=== PATIENT | female | born 2005 | race African-American/Black ===

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

== ENCOUNTER 2024-10-16 09:13 | Emergency (ER) | payer OTHER, SELFPAY ==
[2024-10-16 09:28] VITALS: BP 122/55; PULSE 84; RESP 16; TEMP 38.9; O2SAT 99
--- NOTE | 2024-10-16 10:13 | ED.URI ---
HPI - URI/Sore Throat General Chief Complaint: Fever Stated Complaint: cough,cold sweats,JOSE,threw up Time Seen by Provider: 10/16/24 10:25 Source: patient, RN notes reviewed and old records reviewed Mode of arrival: ambulatory Limitations: no limitations History of Present Illness HPI Narrative: Patient presents with complaints of 3 days of flu-like symptoms. She has been taking [id number] medications intermittently. Has not had any today. States that she felt as though she is getting better tomorrow, but woke up feeling badly this morning. She is not in any obvious distress. She denies any injury or trauma. Voices no other concerns or complaints at this time. Related Data Home Medications ?Medication ?Instructions ?Recorded ?Confirmed ?Last Taken ?Type omeprazole 40 mg capsule,delayed 40 mg PO DAILY 06/22/23 11/23/23 Unknown History release albuterol sulfate 90 mcg/actuation 1 puff inhalation Q6-8H 11/23/23 11/23/23 Unknown History aerosol inhaler Allergies Allergy/AdvReac Type Severity Reaction Status Date / Time peanut Allergy Unknown EYE'S SWELL Verified 10/16/24 09:44 Review of Systems Review of Systems: All systems reviewed & are unremarkable except as noted in HPI and below Constitutional: Constitutional: Reports no additional constitutional complaints, Reports body ache(s), Reports fever(s), Reports headache(s) and Reports lethargy ENT: Reports system reviewed and no additional complaints, except as documented, Reports nasal congestion and Reports nasal discharge Cardiovascular: Cardiovascular: Reports no additional cardiovascular complaints Respiratory: Respiratory: Reports no additional respiratory complaints and Reports cough Gastrointestinal: Gastrointestinal: Reports no additional gastrointestinal complaints, Reports nausea and Reports vomiting (One episode) [facility] Past Medical History Medical History Acne COVID-09 September 2021 Sinus problem Surgical History Surgical History S/P tonsillectomy and adenoidectomy Social History Social History Smoking status: Never smoker Alcohol intake: unknown Substance use type: does not use Living arrangements: with family Gender identity (if verbalized by the patient): Female Comments At the time of my signature, I reviewed and agree with the nursing past medical, surgical, social, and family history. There is no relevant family history pertinent to the patient complaint. Exam Const: General: cooperative, no acute distress, alert and awake Orientation/consciousness: oriented to person, oriented to place and oriented to time HENMT: Head: normal to inspection Ears: TM's normal bilaterally Mouth: Yes moist mucous membranes Throat: postnasal drainage Resp: Effort & Inspection: normal respiratory effort and able to speak in complete sentences Auscultation: clear to auscultation bilaterally, no crackles, no rales, no rhonchi and no wheezes Cardio: Palpation: normal PMI Rate: regular rate Rhythm: regular rhythm Heart sounds: S1 normal heart sound present and S2 normal heart sound present Neuro: General: oriented to person, oriented to place and oriented to time Cranial nerves: Yes CN's II-XII intact bilaterally Psych: Appearance: grossly normal Thought process: Normal thought process present Insight: Good insight present (Psych) Judgement: Good judgement present (Psych) Course Course Level of Care: Express Care Visit Vital Signs Vital signs: Vital Signs Temperature 102.0 F H 10/16/24 09:28 Pulse Rate 84 10/16/24 09:28 Respiratory Rate 16 10/16/24 09:28 Blood Pressure 122/55 L 10/16/24 09:28 Pulse Oximetry 99 10/16/24 09:28 Oxygen Delivery Room Air 10/16/24 09:28 Temperature 102.0 F H 10/16/24 09:28 Pulse Rate 84 10/16/24 09:28 Respiratory Rate 16 10/16/24 09:28 Blood Pressure 122/55 L 10/16/24 09:28 Pulse Oximetry 99 10/16/24 09:28 Oxygen Delivery Room Air 10/16/24 09:28 Reviewed MDM - URI/Sore Throat MDM Narrative Medical decision making narrative: Patient appears uncomfortable, but nontoxic. She was febrile on arrival. Tylenol and ibuprofen given. Negative COVID, positive influenza. Supportive care measures discussed, work note provided. Discharge instructions reviewed with patient, as well as provided in writing per nursing staff. The instructions also include specific and strict return/GO TO THE ER as well as f/u information. All questions have been answered, and the patient deny any further questions with discharge and discharge plan. Some parts of this dictation were generated by voice recognition software and may contain typographical and/or grammatical inaccuracies. Differential Diagnosis Differential diagnosis: Likely upper respiratory infection, otitis media, sinusitis, viral infection and influenza Medical Records Attestation: I reviewed the patient's medical records. Lab Data Attestation: I reviewed the patient's lab results. Discharge Plan Discharge Clinical Impression: Influenza Patient Disposition: Home, Self-Care Condition: Stable Instructions: Antibiotic Form, Influenza (ED) Additional Instructions: Use [id number] medications to treat symptoms. Follow package instructions. Follow-up with primary care provider. Emergency department for new or worse symptoms Patient Language: Armenian Prescriptions: No Action albuterol sulfate 90 mcg/actuation HFA aerosol inhaler 1 puff INHALATION Q6-8H albuterol sulfate 90 mcg/actuation HFA aerosol inhaler 2 puff inhalation QID PRN (Reason: shortness of breath or wheezing) Qty: 6.7 0RF omeprazole 40 mg Capsule,Delayed Release(Dr/Ec) 40 mg PO DAILY Follow-up/Referrals: Adonay Avery MD [Primary Care Provider] - 2 Weeks Stand Alone Forms: Work/School Release IP Time of Disposition: 10:29
[2024-10-16 10:25] VITALS: TEMP 39
[2024-10-16] MEDS: ACETAMINOPHEN 500 MG TABLET 1000 MG PO (10:25)
[2024-10-16 10:28] VITALS: TEMP 39
[2024-10-16] MEDS: IBUPROFEN 400 MG TABLET PO (10:28)
[2024-10-16 10:37] LABS: EDCOVIDSCREEN Negative (Negative); EDINFLUASCREEN Positive (Negative); EDINFLUBSCREEN Negative (Negative)
== END 2024-10-16 10:35 | disposition home or self-care (01) ==
PROVIDERS: Emergency Provider Nurse Practitioner Family; PCP Emergency Medicine
DX: J10.1 Influenza due to other identified influenza virus with other respiratory manifestations (principal); Z20.822 Contact with and (suspected) exposure to COVID-19
CPT/HCPCS: 87426; 87804; 99212; A9270; G0463